=== PATIENT | female | born 1965 | race Caucasian/White ===

== ENCOUNTER 2018-03-16 21:47 | Inpatient (IN) | payer OTHER ==
[~2018-03-16] VITALS: Ht 160 cm; Wt 87.5 kg
[~2018-03-16 21:47] MED LIST: ALEVE220 MG PO; CITALOPRAM HBR20 MG PO; DILAUDID2 MG PO; DIOVAN80 MG PO; LIDODERM 5% P1 PATCH TD; LOPRESSOR50 MG PO; LORTAB 5-325 M1 EACH PO; OMEPRAZOLE20 MG PO; TRILEPTAL300 MG PO; TYLENOL ARTHRI650 MG PO
[2018-03-17 07:47] VITALS: BP 135/64
[2018-03-17 13:58] VITALS: BP 143/76
[2018-03-17 15:48] VITALS: BP 113/68
[2018-03-17 20:06] VITALS: BP 144/69
[2018-03-18] VITALS (8 sets, daily range): BP systolic 70–133; BP diastolic 37–64
[2018-03-18 09:00] LABS: HEMATOCRIT 29.1 % (36.0-46.0); HEMOGLOBIN 9.2 G/DL (11.9-15.5); MCV 89.3 FL (83-99)
[2018-03-18 09:30] LABS: CHLORIDE 104 MEQ/L (99-109); CREATININE 0.6 MG/DL (0.6-1.3); GFR ESTIMATE (CALCULATED) > 59 mL/min/; GLUCOSE 111 mg/dL (70-99); POTASSIUM 4.3 MEQ/L (3.7-5.4); SODIUM 138 MEQ/L (136-147); UREA NITROGEN (BUN) 17 mg/dL (9-23)
[2018-03-19 00:23] VITALS: BP 119/60
[2018-03-19 04:30] VITALS: BP 113/54
[2018-03-19 08:16] VITALS: BP 122/59
[2018-03-19] MEDS ORDERED: NORCO 5/3251 TABLET PO (08:47)
[2018-03-19] MEDS ORDERED: ELIQUIS2.5 MG PO (08:47)
[2018-03-19 12:15] VITALS: BP 143/66
== END 2018-03-19 14:40 | DRG 470 ==
LOC: ENRESERV 21:47 → 2SOUTH 03-17 07:10 → 3WEST 03-17 13:40
PROVIDERS: Physician Assistant
PROC: 0SRC0J9 Replacement of Right Knee Joint with Synthetic Substitute, Cemented, Open Approach (ICD-10-PCS; principal; 2018-03-17)
DX: M17.11 Unilateral primary osteoarthritis, right knee (principal); I10 Essential (primary) hypertension; G47.33 Obstructive sleep apnea (adult) (pediatric); G50.0 Trigeminal neuralgia; K21.9 Gastro-esophageal reflux disease without esophagitis; R01.1 Cardiac murmur, unspecified; M54.9 Dorsalgia, unspecified; R42 Dizziness and giddiness; F32.9 Major depressive disorder, single episode, unspecified; F41.9 Anxiety disorder, unspecified
CPT/HCPCS: 80048; 85014; 85018; 93971; 97530 GP; C1713; J0690; J1885; J2250; J2795; J7040; J7050; J7120